=== PATIENT | female | born 1995 | race Asian ===

== ENCOUNTER 2018-09-10 18:32 | Emergency (ER) | payer OTHER ==
[~2018-09-10] VITALS: Ht 147.3 cm; Wt 39.5 kg
[2018-09-10 18:44] VITALS: BP 149/73
--- NOTE | 2018-09-10 18:52 | NUR ---
PT TO ER BED 3
--- NOTE | 2018-09-10 18:52 | NUR ---
BIB SELF. AAO X4. C/O RUQ ABD PAIN 9/10 UPON PALPATION X EARLIER TODAY, + NAUSEA, -V/D, LBM: YESTERDAY. DENIES TRAUMA OR INJURY. ACTIVE BOWEL SOUNDS TO ALL QUADRANTS. NO SOB NOTED. HOB UP. BED SIDE RAILS UP X1. ON LOW BED POSITION, LOCKED. ER MADE AWARE OF PT STATUS.
--- NOTE | 2018-09-10 19:10 | NUR ---
RECEIVED REPORT FROM OPAL WATSON.
--- NOTE | 2018-09-10 19:21 | NUR ---
Dr. Alanis evaluating patient at bedside.
[2018-09-10 20:32] VITALS: BP 106/60
--- NOTE | 2018-09-10 20:32 | NUR ---
Patient discharged with v/s stable. Written and verbal after care instructions given and explained. Patient alert, oriented and verbalized understanding of instructions. Ambulatory with steady gait. All questions addressed prior to discharge. ID band removed. Patient advised to follow up with PMD. Rx of LACTULOSE 10G/15ML AND MINERAL OIL 30 ML given. Patient educated on indication of medication including possible reaction and side effects. Opportunity to ask questions provided and answered.
== END 2018-09-10 20:32 | disposition home or self-care (01) ==
LOC: MED 18:32
DX: R10.11 Right upper quadrant pain (principal); R11.0 Nausea
CPT/HCPCS: 74022; 81002; 81025; 99283

== ENCOUNTER 2018-12-14 18:29 | Emergency (ER) | payer OTHER ==
[~2018-12-14] VITALS: Ht 152.4 cm; Wt 37.6 kg
[2018-12-14 18:37] VITALS: BP 111/69
--- NOTE | 2018-12-14 19:14 | NUR ---
PT PRESENTS TO ED WITH C/O DIZZINESS X 2 DAYS AFTER STARTING METRONIDAZOLE AND MINOCYCLINE FOR TREATMENT OF ACNE. +NAUSEA, DENIES EPISODES OF VOMITING. ASSISTED INTO GOWN;CONNECTED TO PUBLIC SPACE ATTENDANT. VSS. YAQUELIN TO EVALUATE PT.
--- NOTE | 2018-12-14 19:15 | NUR ---
Patient is alert and oriented to person, place, time and event. Pupils equal and reactive to light bilaterally. Bilateral hand pedorthist equal. Bilateral foot push equal.
--- NOTE | 2018-12-14 19:16 | NUR ---
REPORT GIVEN TO OPAL GUERRIER. TRANSFER OF CARE AT THIS TIME.
--- NOTE | 2018-12-14 19:17 | NUR ---
REPORT RECEIVED FROM OPAL NUGYỄN. TRANSFER OF CARE AT THIS TIME.
[2018-12-14] MEDS ORDERED: ONDANSETRON 4 MG/2 ML VIAL IVP ONE (19:25)
[2018-12-14] MEDS ORDERED: NACL 0.9% 1,000 ML IV ONE (19:25)
--- NOTE | 2018-12-14 20:12 | NUR ---
LAB AT BEDSIDE.
[2018-12-14 20:45] LABS: BASOPHILS % (AUTO) 0.4 % (0.0-2.0); EOSINOPHILS # (AUTO) 0.1 K/uL (0-0.4); EOSINOPHILS % (AUTO) 1.2 % (0.0-4.0); HEMATOCRIT 38.5 % (36-48); HEMOGLOBIN 12.7 g/dL (12.0-16.0); LYMPHOCYTES # (AUTO) 2.5 K/uL (2.5-16.5); LYMPHOCYTES % (AUTO) 37.3 % (20.5-51.1); MEAN CORPUSCULAR HEMOGLOBIN 30 pg (27-31); MEAN CORPUSCULAR HGB CONC 33 g/dL (33-37); MONOCYTES # (AUTO) 0.4 K/uL (0.8-1.0); MONOCYTES % (AUTO) 5.9 % (1.7-9.3); NEUTROPHILS # (AUTO) 3.7 K/uL (1.8-7.7); NEUTROPHILS % (AUTO) 55.2 % (42.2-75.2); PLATELET COUNT (AUTO) 181 K/uL (140-450); RED BLOOD CELL COUNT(AUTO) 4.23 MIL/uL (4.20-5.40); RED CELL DISTRIBUTION WIDTH 12.3 % (11.6-13.7); WHITE BLOOD COUNT (AUTO) 6.7 K/uL (4.8-10.8)
[2018-12-14 20:57] LABS: ANION GAP 14.1 (8-16); CARBON DIOXIDE 26.3 mmol/L (21-32); CREATININE 0.6 mg/dL (0.6-1.3); POTASSIUM 3.4 mmol/L (3.5-5.1)
--- NOTE | 2018-12-14 21:00 | NUR ---
Patient appears to be resting comfortably in bed. Vital Signs within normal limits. Respirations even and unlabored.
[2018-12-14] MEDS ORDERED: POTASSIUM CHLORIDE 10 MEQ TABER PO ONE (21:30)
[2018-12-14 21:52] VITALS: BP 93/56
--- NOTE | 2018-12-14 21:52 | NUR ---
Patient discharged with v/s stable. Written and verbal after care instructions given and explained. Patient alert, oriented and verbalized understanding of instructions. Ambulatory with steady gait. All questions addressed prior to discharge. ID band removed. Patient advised to follow up with PMD. Rx of Metronidazole and Zofran given. Patient educated on indication of medication including possible reaction and side effects. Opportunity to ask questions provided and answered.
== END 2018-12-14 21:52 | disposition home or self-care (01) ==
LOC: MED 18:29
DX: R11.2 Nausea with vomiting, unspecified (principal); E87.6 Hypokalemia; R10.84 Generalized abdominal pain; R42 Dizziness and giddiness
CPT/HCPCS: 36415; 80048; 81002; 81025; 85025; 96361; 96374; 99283; J2405; J7030

== ENCOUNTER 2019-05-28 10:59 | Emergency (ER) | payer OTHER ==
[~2019-05-28] VITALS: Ht 147.3 cm; Wt 37.2 kg
[2019-05-28 11:31] VITALS: BP 108/73
[2019-05-28] MEDS ORDERED: IBUPROFEN 400 MG TAB PO ONE (11:35)
--- NOTE | 2019-05-28 11:50 | NUR ---
Note undone in EDM - 05/28/19 at 1246 by MED PT C/O DYSURIA AND HEMATURIA SINCE THIS AM AND 4/10 LOWER BACK PAIN SINCE LAST NIGHT; PT STATES HE HAD A PAP SMEAR AND HAD WIDSOM TEETH EXTRACTED 2 DAYS AGO AND C/O FEVER. PATIENT STATES PAIN OF 4/10 AT THIS TIME; VSS; PATIENT POSITIONED FOR COMFORT; HOB ELEVATED; BEDRAILS UP X1; BED DOWN. ER MADE AWARE OF PT STATUS.
--- NOTE | 2019-05-28 12:00 | NUR ---
Patient ambulated to bed 5. RN evaluating patient at bedside.
[2019-05-28 12:02] LABS: APPEARANCE,URINE CLOUDY (CLEAR); BILIRUBIN,URINE NEGATIVE (NEGATIVE); BLOOD, URINE 3+ (NEGATIVE); COLOR,URINE YELLOW (YELLOW); LEUKOCYTE ESTERASE ,URINE 3+ (NEGATIVE); NITRITE, URINE POSITIVE (NEGATIVE); UGLUCOSE NEGATIVE (NEGATIVE)
--- NOTE | 2019-05-28 12:10 | NUR ---
PT C/O DYSURIA AND HEMATURIA SINCE THIS AM AND 4/10 LOWER BACK PAIN SINCE LAST NIGHT; PT STATES HE HAD A PAP SMEAR AND HAD WIDSOM TEETH EXTRACTED 2 DAYS AGO AND C/O FEVER. PATIENT STATES PAIN OF 4/10 AT THIS TIME; VSS; PATIENT POSITIONED FOR COMFORT; HOB ELEVATED; BEDRAILS UP X1; BED DOWN. ER MD MADE AWARE OF PT STATUS.
[2019-05-28 12:20] VITALS: BP 109/68
--- NOTE | 2019-05-28 12:20 | NUR ---
Patient discharged with v/s stable by Dr. Najera. Rx of Macrobid Capsule and Pyridium given. Patient educated on indication of medication including possible reaction and side effects. Opportunity to ask questions provided and answered.
[2019-05-28 12:30] LABS: RBC,URINE 20-50 /HPF (0-5); WBC,URINE 80-100 /HPF (0-5)
== END 2019-05-28 12:20 | disposition home or self-care (01) ==
LOC: MED 10:59
DX: N39.0 Urinary tract infection, site not specified (principal)
CPT/HCPCS: 81001; 81025; 87086; 87186; 99283

== ENCOUNTER 2020-02-23 15:30 | Emergency (ER) | payer OTHER ==
[~2020-02-23] VITALS: Ht 152.4 cm; Wt 38.1 kg
[2020-02-23 15:32] VITALS: BP 108/72
--- NOTE | 2020-02-23 15:56 | NUR ---
PATIENT PRESENTS TO ED WITH URINARY BURNING AND HESITANCY X2 DAYS . PT STATES SHE IS HAVING BLOODY URINE THAT BEGAN WHEN HER URINARY BURNING BEGAN . PT HAS BEEN TAKING PYRIDIUM FOR URINARY BURNING. DENIES N/V/D; SKIN IS PINK/WARM/DRY; AAOX4 WITH EVEN AND STEADY GAIT; LUNGS CLEAR BL; HR EVEN AND REGULAR; PT DENIES ANY FEVER, CP, SOB, OR COUGH AT THIS TIME; PATIENT STATES PAIN OF 0/10 AT THIS TIME; VSS; PATIENT POSITIONED FOR COMFORT; HOB ELEVATED; BEDRAILS UP X2; BED DOWN. ER MD MADE AWARE OF PT STATUS.
[2020-02-23 16:08] VITALS: BP 108/72
--- NOTE | 2020-02-23 16:08 | NUR ---
Patient discharged with v/s stable. Written and verbal after care instructions given and explained. Patient alert, oriented and verbalized understanding of instructions. Ambulatory with steady gait. All questions addressed prior to discharge. ID band removed. Patient advised to follow up with PMD. Rx of PHENAZOPYRIDINE, KEFLEX given. Patient educated on indication of medication including possible reaction and side effects. Opportunity to ask questions provided and answered.
== END 2020-02-23 16:08 | disposition home or self-care (01) ==
LOC: MED 15:30
DX: N39.0 Urinary tract infection, site not specified (principal)
CPT/HCPCS: 81002; 81025; 99283

== ENCOUNTER 2020-04-14 11:50 | Emergency (ER) | payer OTHER ==
[~2020-04-14] VITALS: Ht 152.4 cm; Wt 40.4 kg
[2020-04-14 11:57] VITALS: BP 106/68
--- NOTE | 2020-04-14 12:21 | NUR ---
24 y/o female from home c/o dysuria with urinary frequency since yesterday. Pt states her urine is orange, but taking pyridium at this time from prior UTI. 8/10 burning sensation upon urination. Afebrile at this time. Skin warm and dry at this time. VSS medhx: denies
[2020-04-14] MEDS ORDERED: NITROFURANTOIN 100 MG CAP PO SCH (12:40)
[2020-04-14 13:24] VITALS: BP 106/68
--- NOTE | 2020-04-14 13:24 | NUR ---
Patient discharged with v/s stable. Written and verbal after care instructions given and explained. Patient alert, oriented and verbalized understanding of instructions. Ambulatory with steady gait. All questions addressed prior to discharge. ID band removed. Patient advised to follow up with PMD. Rx of Nitrofurantoin given. Patient educated on indication of medication including possible reaction and side effects. Opportunity to ask questions provided and answered.
== END 2020-04-14 13:24 | disposition home or self-care (01) ==
LOC: MED 11:50
DX: N30.90 Cystitis, unspecified without hematuria (principal)
CPT/HCPCS: 81002; 81025; 99283

== ENCOUNTER 2020-05-26 09:37 | Emergency (ER) | payer OTHER, SELFPAY ==
[~2020-05-26] VITALS: Ht 160 cm; Wt 54.4 kg
[2020-05-26 09:53] VITALS: BP 127/59
--- NOTE | 2020-05-26 10:02 | NUR ---
Dr. Alanis is evaluating the patient in the overflow tent.
--- NOTE | 2020-05-26 10:18 | NUR ---
PTS MOTHER TESTED + FOR COVID, PT IS EXPERIENCING COUGH/FEVER/NAUSEA. SLIGHT SOB. NO DISTRESS AT THIS TIME NO PMH NKDA
[2020-05-26 10:33] VITALS: BP 127/59
--- NOTE | 2020-05-26 10:33 | NUR ---
Patient discharged with v/s stable. Written and verbal after care instructions given and explained. Patient alert, oriented and verbalized understanding of instructions. Ambulatory with steady gait. All questions addressed prior to discharge. ID band removed. Patient advised to follow up with PMD. Rx of PROMETHAZINE, TYLENOL given. Patient educated on indication of medication including possible reaction and side effects. Opportunity to ask questions provided and answered.
== END 2020-05-26 10:33 | disposition home or self-care (01) ==
LOC: MED 09:37
DX: R05 Cough (principal); R50.9 Fever, unspecified; R51.9 Headache, unspecified; R63.0 Anorexia; Z20.828 Contact with and (suspected) exposure to other viral communicable diseases
CPT/HCPCS: 71045; 99283

== ENCOUNTER 2021-01-31 15:27 | Emergency (ER) | payer OTHER, SELFPAY ==
[~2021-01-31] VITALS: Ht 152.4 cm; Wt 40.8 kg
[2021-01-31 16:14] VITALS: BP 109/69
--- NOTE | 2021-01-31 16:18 | NUR ---
TRIAGE COMPLETED. AMBULATORY TO LOBBY AWAITING BED IN ED. NO ACUTE DISTRESS NOTED.
[2021-01-31] MEDS ORDERED: IBUP-2809 PO (19:17)
--- NOTE | 2021-01-31 19:35 | NUR ---
CONFIRMED WITH YAQUELIN JOSHUA, CANCEL URINE AND BLOOD DRAW LAB ORDER. OK TO D/C AT THIS TIME.
[2021-01-31 19:36] VITALS: BP 109/69
== END 2021-01-31 17:36 | disposition home or self-care (01) ==
LOC: MED 15:27
DX: R10.11 Right upper quadrant pain (principal); R10.13 Epigastric pain; Z79.1 Long term (current) use of non-steroidal anti-inflammatories (NSAID)
CPT/HCPCS: 99282

== ENCOUNTER 2022-03-11 14:55 | Emergency (ER) | payer OTHER ==
[~2022-03-11] VITALS: Ht 152.4 cm; Wt 37.6 kg
[~2022-03-11 14:55] MED LIST: IBUP-2809 PO
[2022-03-11 15:13] VITALS: BP 114/71
--- NOTE | 2022-03-11 15:25 | NUR ---
26/F WALKED IN C/O LOWER ABD PAIN ACCOMPANIED BY BROWN/RED VAGINAL DISCHARGE ONSET TODAY. DENIES NVD. DENIES FLANK PAIN, DENIES DYSURIA. STATES LAST PERIOD 02/12. AAO4, AMBULATORY, URINE COLLECTED. DENIES . PT PLACED ON GOWN.
--- NOTE | 2022-03-11 15:29 | NUR ---
PELVIC TRAY AT BEDSIDE, PT IN GOWN. BLANKET PROVIDED
--- NOTE | 2022-03-11 15:38 | NUR ---
DR LUZ AND TRAVIS RN AT BEDSIDE FOR PELVIC EXAM
[2022-03-11] MEDS ORDERED: DICYCLOMINE HCL LIQUID 20 MG, ALUMINUM HYD/MAG/SIMETHICONE 30 ML, LIDOCAINE VISCOUS 2% ... PO ONE ×3 (15:40)
--- NOTE | 2022-03-11 15:48 | NUR ---
VAGINAL SWABS COLLECTED AND SENT TO LAB
[2022-03-11] MEDS ORDERED: DICYCLOMINE HCL LIQUID 10 MG/5 ML UDC ONE (15:50)
[2022-03-11] MEDS ORDERED: ALUMINUM HYD/MAG/SIMETHICONE 30 ML UDC ONE (15:50)
[2022-03-11 15:53] LABS: BASOPHILS % (AUTO) 0.5 % (0.0-2.0); EOSINOPHILS # (AUTO) 0.3 K/uL (0-0.4); EOSINOPHILS % (AUTO) 5.5 % (0.0-4.0); HEMATOCRIT 38.9 % (36-48); HEMOGLOBIN 13.3 g/dL (12.0-16.0); LYMPHOCYTES # (AUTO) 2.3 K/uL (2.5-16.5); LYMPHOCYTES % (AUTO) 40.3 % (20.5-51.1); MEAN CORPUSCULAR HEMOGLOBIN 31 pg (27-31); MEAN CORPUSCULAR HGB CONC 34 g/dL (33-37); MEAN CORPUSCULAR VOLUME 91.5 fL (80-94); MONOCYTES # (AUTO) 0.5 K/uL (0.8-1.0); NEUTROPHILS # (AUTO) 2.6 K/uL (1.8-7.7); NEUTROPHILS % (AUTO) 44.7 % (42.2-75.2); PLATELET COUNT (AUTO) 214 K/uL (140-450); RED BLOOD CELL COUNT(AUTO) 4.25 MIL/uL (4.20-5.40); WHITE BLOOD COUNT (AUTO) 5.8 K/uL (4.8-10.8)
[2022-03-11 16:08] LABS: ALBUMIN 3.9 g/dL (3.4-5.0); ANION GAP 10.4 (8-16); CARBON DIOXIDE 29.2 mmol/L (21-32); CREATININE 0.7 mg/dL (0.6-1.3); POTASSIUM 3.6 mmol/L (3.5-5.1); TOTAL BILIRUBIN 0.3 mg/dL (0.0-1.0)
--- NOTE | 2022-03-11 16:14 | NUR ---
PT STATES PAIN DECREASED AFTER MED BUT STILL FEELS BLOATED. ERMD NOTIFIED.
[2022-03-11] MEDS ORDERED: ACETAMINOPHEN EXTRA STRENGTH 500 MG TAB PO ONE (16:20)
[2022-03-11] MEDS ORDERED: ONDANSETRON 4 MG ODT PO ONE (16:20)
--- NOTE | 2022-03-11 16:21 | NUR ---
XR AT BEDSIDE
[2022-03-11 17:11] VITALS: BP 106/68
[2022-03-11] MEDS ORDERED: ONDA-188 PO (17:34)
[2022-03-11] MEDS ORDERED: FAMO-90 PO (17:39)
[2022-03-11] MEDS ORDERED: ALUM355S5 PO (17:39)
--- NOTE | 2022-03-11 18:00 | NUR ---
Patient discharged with v/s stable. Written and verbal after care instructions given and explained. Patient alert, oriented and verbalized understanding of instructions. Ambulatory with steady gait. All questions addressed prior to discharge. ID band removed. Patient advised to follow up with PMD. Patient educated on indication of medication including possible reaction and side effects. Opportunity to ask questions provided and answered.
== END 2022-03-11 18:00 | disposition home or self-care (01) ==
LOC: MED 14:55
DX: K29.70 Gastritis, unspecified, without bleeding (principal); N93.9 Abnormal uterine and vaginal bleeding, unspecified
CPT/HCPCS: 36415; 74021; 80053; 81002; 81025; 83690; 85025; 87070; 87205; 87210; 87491; 99284; Q0162